=== PATIENT | female | born 1945 | race Hispanic/Latino ===

== ENCOUNTER 2017-07-04 08:28 | Day surgery (SDC) | payer MEDICARE, OTHER ==
[2017-06-27 09:11] VITALS: BMI 20.6
[2017-07-04 08:56] VITALS: RESP 16; TEMP 98
[2017-07-04] MEDS ORDERED: Propofol 10 mg/ml Inj (20 ML) ONE (09:11)
[2017-07-04] MEDS ORDERED: Sodium Chloride 0.9% 1,000 ML IV SCH (10:15)
[2017-07-04 11:37] VITALS: BP 123/66; PULSE 55; O2SAT 99
== END 2017-07-04 11:31 | disposition home or self-care (01) ==
LOC: ENDO 08:28
PROVIDERS: ATTEND Specialist
DX: K22.70 Barrett's esophagus without dysplasia (principal); K44.9 Diaphragmatic hernia without obstruction or gangrene
CPT/HCPCS: 43239; 88305; 88312; J2704; J7040 ×2